=== PATIENT | female | born 1985 | race African-American/Black ===

== ENCOUNTER 2018-09-21 08:11 | Emergency (ER) | payer MEDICAID ==
[~2018-09-21] VITALS: Ht 170.2 cm; Wt 108.9 kg
[2018-09-21 08:38] VITALS: BP 136/67
[2018-09-21] MEDS ORDERED: KETOROLAC TROMETH 60MG/2ML VIAL IM ONE (09:15)
== END 2018-09-21 09:34 | disposition left against medical advice (07) ==
LOC: ER 08:11
DX: M25.512 Pain in left shoulder (principal); Z53.29 Procedure and treatment not carried out because of patient's decision for other reasons
CPT/HCPCS: 73030